=== PATIENT | female | born 1975 | race African-American/Black ===

== ENCOUNTER 2017-09-22 05:53 | Emergency (ER) | payer OTHER ==
[2017-09-22 06:03] VITALS: BP 160/118
--- NOTE | 2017-09-22 06:24 | ER Document Report ---
ED ENT - General Chief Complaint: Sore Throat Stated Complaint: SORE THROAT Time Seen by Provider: 09/22/17 06:23 Notes: The patient is a 42-year-old female, past medical history hypertension (not on any medications), presents with 5 days of a sore throat. She saw her primary care physician was given amoxicillin for suspected strep pharyngitis, but she is still feeling pain and difficulty swallowing. Patient is now complaining of right-sided neck pain. Denies fevers, cough, chest pain, nausea, vomiting, neck stiffness or rash. TRAVEL OUTSIDE OF THE [place] IN LAST 30 DAYS: No - Related Data Allergies/Adverse Reactions: No Known Allergies Allergy (Verified 09/22/17 06:03) Past Medical History - General Information source: Patient - Social History Smoking Status: Unknown if Ever Smoked Family History: Reviewed & Not Pertinent Review of Systems - Review of Systems Notes: REVIEW OF SYSTEMS: CONSTITUTIONAL: -fevers, -chills EENT: -eye pain, -difficulty swallowing, -nasal congestion, +sore throat CARDIOVASCULAR: -chest pain, -syncope. RESPIRATORY: -cough, -SOB GASTROINTESTINAL: -abdominal pain, -nausea, -vomiting, -diarrhea GENITOURINARY: -dysuria, -hematuria MUSCULOSKELETAL: -back pain, +right-sided neck pain SKIN: -rash or skin lesions. HEMATOLOGIC: -easy bruising or bleeding. LYMPHATIC: +swollen, enlarged glands. NEUROLOGICAL: -altered mental status or loss of consciousness, -headache, - neurologic symptoms PSYCHIATRIC: -anxiety, -depression. ALL OTHER SYSTEMS REVIEWED AND NEGATIVE. Physical Exam - Vital signs Vitals: Temp Pulse Resp BP Pulse Ox 98.1 F 82 17 160/118 H 100 09/22/17 06:01 09/22/17 06:01 09/22/17 06:01 09/22/17 06:01 09/22/17 06:01 - Notes Notes: PHYSICAL EXAMINATION: GENERAL: Well-appearing, well-nourished and in no acute distress. HEAD: Atraumatic, normocephalic. EYES: Pupils equal round and reactive to light, extraocular movements intact, sclera anicteric, conjunctiva are normal. ENT: erythematous and mildly swollen posterior pharynx without exudates, nares patent Moist mucous membranes. NECK: Normal range of motion, supple with right anterior cervical lymphadeopathy LUNGS: Breath sounds clear to auscultation bilaterally and equal. No wheezes rales or rhonchi. HEART: Regular rate and rhythm without murmurs ABDOMEN: Soft, nontender, normoactive bowel sounds. No guarding, no rebound. No masses appreciated. EXTREMITIES: Normal range of motion, no pitting or edema. No cyanosis. NEUROLOGICAL: Cranial nerves grossly intact. Normal speech, normal gait. Normal sensory and motor exams. PSYCH: Normal mood, normal affect. SKIN: Warm, Dry, normal turgor, no rashes or lesions noted. Course - Re-evaluation Re-evalutation: Patient already on amoxicillin for presumed strep pharyngitis by her primary care physician. Will add Decadron. She does not appear in any acute distress. Symptoms are atypical for epiglottitis, FLEXOGRAPHIC PRESS OPERATOR, RPA or meningitis at this time. Also instructed her that her blood pressure is high and to follow-up with her primary care physician to have this rechecked when she is not in pain to see if she needs to be started on any antihypertensive medications. EKG obtained because she felt a right upper chest pain, but EKG does not show any acute changes. Instructed her that this may be related to her lymphadenopathy and follow-up with her primary care physician for further evaluation. Given strict return precautions and she understands. - Vital Signs Vital signs: Temp Pulse Resp BP Pulse Ox 98.1 F 82 17 160/118 H 100 09/22/17 06:01 09/22/17 06:01 09/22/17 06:01 09/22/17 06:01 09/22/17 06:01 - EKG Interpretation by Dc EKG shows normal: Sinus rhythm, [place], Intervals, QRS Complexes, ST-T Waves Rate: Normal Discharge - Discharge Clinical Impression: Pharyngitis Qualifiers: Pharyngitis/tonsillitis etiology: unspecified etiology Qualified Code(s): J02.9 - Acute pharyngitis, unspecified Condition: Stable Disposition: HOME, SELF-CARE Additional Instructions: SORE THROAT: Sore throats may be caused by viruses, bacteria, or fungi. Most are due to a virus, and must get better on their own. Bacterial sore throats, particularly those due to "strep," need treatment with antibiotics. If an antibiotic is prescribed, be sure to take the medication for a full 10 days. Failure to take the antibiotic can result in complications such as rheumatic fever. Sometimes, an injection of antibiotics is given instead of pills or liquid. This single "shot" is equal in effectiveness to the oral medication. To relieve symptoms, take acetaminophen for pain. Sip clear liquids frequently, or eat popsicles or ice chips. Anesthetic sprays or lozenges may help. Make sure the air in the room is not too dry. Avoid using decongestants or antihistamines. Call the doctor if there is no improvement in two days, or if you have difficulty breathing, increasing throat pain, high fever, rash, or frequent vomiting. STEROID MEDICATION: You have been given a medicine of the cortisone/steroid class. This medication is used to control inflammation or allergy. It is usually only given for a short period of time, until the acute process subsides. There are usually no side effects from short-term use of cortisone-like medications. Some persons feel an increased sense of well-being and are not sleepy at bedtime. Long-term use of cortisone medications is best avoided, unless required for a severe condition. If your condition does not remit, or relapses after the course of corticosteroid medication, you should consult your physician. FOLLOW-UP CARE: If you have been referred to a physician for follow-up care, call the physician s office for an appointment as you were instructed or within the next two days. If you experience worsening or a significant change in your symptoms, notify the physician immediately or return to the Emergency Department at any time for re-evaluation. Forms: Elevated Blood Pressure
[2017-09-22] MEDS ORDERED: DEXAMETHASONE 4 MG TABLET PO ONE (06:39)
--- NOTE | 2017-09-22 07:50 | EKG REPORT ---
SEVERITY:- NORMAL ECG - SINUS RHYTHM : Confirmed by: Zain Palma MD 22-Sep-2017 07:48:54
== END 2017-09-22 07:16 | disposition home or self-care (01) ==
LOC: ER 05:53
DX: J02.9 Acute pharyngitis, unspecified (principal); R59.0 Localized enlarged lymph nodes; I10 Essential (primary) hypertension; M54.2 Cervicalgia; R07.9 Chest pain, unspecified
CPT/HCPCS: 93005; 93010; 99283

== ENCOUNTER 2018-07-28 06:26 | Emergency (ER) | payer OTHER ==
[2018-07-28 07:26] LABS: APPEARANCE,URINE CLEAR; BILIRUBIN,URINE NEGATIVE (NEGATIVE); COLOR,URINE YELLOW; GLUCOSE, URINE NEGATIVE (NEGATIVE); KETONES,URINE NEGATIVE (NEGATIVE); LEUKOCYTE ESTERASE,URINE NEGATIVE (NEGATIVE); NITRITE,URINE NEGATIVE (NEGATIVE); PROTEIN,URINE NEGATIVE (NEGATIVE); URINE SPECIFIC GRAVITY 1.014; UROBILINOGEN,URINE NEGATIVE mg/dL (<2.0)
[2018-07-28] MEDS ORDERED: NORMAL SALINE 1000 ML 1,000 ML IV ONE (07:36)
[2018-07-28 08:11] LABS: ABSOLUTE BASOPHILS # (AUTO) 0.1 10^3/uL (0.0-0.2); ABSOLUTE EOSINOPHILS # (AUTO) 0.1 10^3/uL (0.0-0.6); ABSOLUTE LYMPHOCYTES (AUTO) 1.9 10^3/uL (0.5-4.7); ABSOLUTE MONOCYTES (AUTO) 0.4 10^3/uL (0.1-1.4); ABSOLUTE NEUT (AUTO) 4.9 10^3/uL (1.7-8.2); BASOPHILS % (AUTO) 0.7 % (0-2); EOSINOPHILS % (AUTO) 1.4 % (0-6); HEMATOCRIT 35.5 % (36.0-47.0); HEMOGLOBIN 11.9 g/dL (12.0-15.5); LYMPHOCYTES % (AUTO) 26.1 % (13-45); MEAN CORPUSCULAR HEMOGLOBIN 30.1 pg (27.0-33.4); MEAN CORPUSCULAR HGB CONC 33.4 g/dL (32.0-36.0); MEAN CORPUSCULAR VOLUME 90 fl (80-97); MONOCYTES % (AUTO) 5.5 % (3-13); PLATELET COUNT 264 10^3/uL (150-450); RED BLOOD COUNT 3.94 10^6/uL (3.72-5.28); RED CELL DISTRIBUTION WIDTH 14.1 % (11.5-14.0); SEGMENTED NEUTROPHILS % (AUTO) 66.3 % (42-78); TOTAL CELLS COUNTED % (AUTO) 100 %; WHITE BLOOD COUNT 7.4 10^3/uL (4.0-10.5)
--- NOTE | 2018-07-28 08:24 | ER Document Report ---
ED GI/ - General Chief Complaint: Flank Pain Stated Complaint: FLANK PAIN Time Seen by Provider: 07/28/18 07:16 Notes: Patient is a 43-year-old female presenting to the emergency department for constant sharp right lower quadrant abdominal pain for the last 3 days. States at time taking a deep breath or moving makes the pain worse. Patient's denying any nausea, vomiting, diarrhea, fever, dysuria, vaginal discharge, URI symptoms. Patient states the pain is in her right lower side and at times radiates around to her right flank. Patient denies that the pain is colicky in any nature. Denies any history of kidney stones. Patient denies any recent lifting or moving, or exercising recently. Past medical history: DVT Medications: None Allergies: Heparin, Benadryl Surgical history: Inguinal hernia repair bilaterally, breast reduction, gastric bypass 2008, partial hysterectomy Patient denies cigarette smoking, denies illicit drug use, denies EtOH use. TRAVEL OUTSIDE OF THE [place] IN LAST 30 DAYS: No - Related Data Allergies/Adverse Reactions: No Known Allergies Allergy (Verified 09/22/17 06:03) Past Medical History - General Information source: Patient - Social History Smoking Status: Never Smoker Lives with: Family Family History: Reviewed & Not Pertinent Patient has suicidal ideation: No Patient has homicidal ideation: No Renal/ Medical History: Denies: Hx Peritoneal Dialysis Past Surgical History: Reports: Hx Abdominal Surgery - gastric bypass 2008, Hx Breast Surgery - reduction, Hx Orthopedic Surgery - bilat ankles Review of Systems - Review of Systems Constitutional: See HPI EENT: See HPI Cardiovascular: See HPI Respiratory: See HPI Gastrointestinal: See HPI Genitourinary: See HPI Female Genitourinary: See HPI Musculoskeletal: See HPI Skin: No symptoms reported Hematologic/Lymphatic: No symptoms reported Neurological/Psychological: No symptoms reported Physical Exam - Vital signs Vitals: Temp Pulse Resp BP Pulse Ox 98.5 F 67 18 182/107 H 100 07/28/18 06:27 07/28/18 06:27 07/28/18 06:27 07/28/18 06:27 07/28/18 06:27 - Notes Notes: GENERAL: Alert, interacts well. No acute distress. HEAD: Normocephalic, atraumatic. EYES: Pupils equal, round, and reactive to light. Extraocular movements intact. ENT: Oral mucosa moist, tongue midline. NECK: Full range of motion. Supple. Trachea midline. LUNGS: Clear to auscultation bilaterally, no wheezes, rales, or rhonchi. No respiratory distress. HEART: Regular rate and rhythm. No murmur ABDOMEN: Soft, Non-distended. Bowel sounds present in all 4 quadrants. No Ontiveros sign, positive McBurney's point tenderness. No left lower quadrant pain no left upper quadrant pain. EXTREMITIES: Moves all 4 extremities spontaneously. No edema, normal radial and dorsalis pedis pulses bilaterally. No cyanosis. BACK: no cervical, thoracic, lumbar midline tenderness. No saddle anesthesia, normal distal neurovascular exam. No CVA tenderness bilaterally. NEUROLOGICAL: Alert and oriented x3. Normal speech. cranial nerves II through XII grossly intact. PSYCH: Normal affect, normal mood. SKIN: Warm, dry, normal turgor. No rashes or lesions noted. Course - Re-evaluation Re-evalutation: 07/28/18 08:37 Discussed right lower quadrant pain with patient at bedside. Discussed imaging for appendicitis is best ruled out with a CT. Patient states she wishes for a CT at this time. Blood work has been ordered. Patient is currently refusing any pain management. States she does not like how it makes her feel. Discussed with her nonnarcotic pain management and she continues to deny wanting any pain management. 07/28/18 10:34 CT shows no signs of appendicitis, kidney stones. Discussed lab results with patient at bedside which showed no signs of leukocytosis, no urinary tract infection or dehydration. Discussed need for follow-up with gastroenterology if pain continues. Discussed potential muscle pull or strain if she continues with pain into her right back. Patient states she will take [id number] Motrin. Patient declines any pain management for home or muscle relaxers. Nursing notes reviewed, vital signs reviewed. Patient continues to be hypertensive through visit to the emergency room. Patient continues to deny wanting any pain management. Discussed need to follow -up with primary care provider for her hypertension. - Vital Signs Vital signs: Temp Pulse Resp BP Pulse Ox 98.5 F 67 18 182/107 H 100 07/28/18 06:27 07/28/18 06:27 07/28/18 06:27 07/28/18 06:27 07/28/18 06:27 - Laboratory Result Diagrams: 07/28/18 08:00 07/28/18 09:26 Laboratory results interpreted by me: 07/28/18 07/28/18 08:00 09:26 Hgb 11.9 L Hct 35.5 L RDW 14.1 H Chloride 110 H Carbon Dioxide 20 L Calcium 8.2 L Albumin 3.2 L Discharge - Discharge Clinical Impression: Abdominal pain Qualifiers: Abdominal location: right lower quadrant Qualified Code(s): R10.31 - Right lower quadrant pain Condition: Stable Disposition: HOME, SELF-CARE Instructions: Abdominal Pain ([facility]) Additional Instructions: As we discussed you have been seen and treated in the emergency department for abdominal pain. Your CT reveals no signs of appendicitis or kidney stones. Your lab work reveals no signs of infection, anemia, urinary tract infection. Please follow-up with your primary care provider. Gastroenterology phone numbers will be given to you in this paperwork. Please return to the emergency room for any other concerning symptoms. Also as we discussed you should follow-up with your primary care provider for your hypertension at today's visit. Forms: Elevated Blood Pressure Referrals: SARAVANAN BENITES MD [ACTIVE STAFF] - Follow up as needed
--- NOTE | 2018-07-28 08:30 | RADIOLOGY REPORT (SQ) ---
EXAM DESCRIPTION: CT ABD/PELVIS WITH IV ONLY COMPLETED DATE/TIME: 07/28/2018 8:16 am REASON FOR STUDY: RLQ pain COMPARISON: None. TECHNIQUE: CT scan of the abdomen and pelvis performed using helical scanning technique with dynamic intravenous contrast injection. No oral contrast. Images reviewed with lung, soft tissue, and bone windows. Reconstructed coronal and sagittal MPR images reviewed. Delayed images for evaluation of the urinary system also acquired. All images stored on PACS. All CT scanners at this facility use dose modulation, iterative reconstruction, and/or weight based d osing when appropriate to reduce radiation dose to as low as reasonably achievable (ALARA). [facility]: Dose Right [facility]: CareDose [facility]: Dose Right [facility]: Teradose 4D [facility]: CloudMedx CONTRAST TYPE AND DOSE: contrast/concentration: Isovue 350.00 mg/ml; Total Contrast Delivered: 93.0 ml; Total Saline Delivered: 70.0 ml RENAL FUNCTION: None required. The patient is less than 50 years old. RADIATION DOSE: CT Rad equipment meets quality standard of care and radiation dose reduction techniq ues were employed. CTDIvol: 10.6 - 13.9 mGy. DLP: 1401 mGy-cm.. LIMITATIONS: None. FINDINGS: LOWER CHEST: No significant findings. No nodules or infiltrates. LIVER: Normal size. No masses. No dilated ducts. SPLEEN: Normal size. No focal lesions. PANCREAS: No masses. No significant calcifications. No adjacent inflammation or peripancreatic fluid collections. Pancreatic duct not dilated. GALLBLADDER: No identified stones by CT criteria. No inflammatory changes to suggest cholecystitis. ADRENAL GLANDS: No significant masses or asymmetry. RIGHT KIDNEY AND URETER: No solid masses. No significant calcifications. No hydronephrosis or hyd roureter. LEFT KIDNEY AND URETER: No solid masses. No significant calcifications. No hydronephrosis or hydr oureter. AORTA AND VESSELS: No aneurysm. No dissection. Renal arteries, SMA, celiac without stenosis. IVC fallon ter in place RETROPERITONEUM: No retroperitoneal adenopathy, hemorrhage or masses. BOWEL AND PERITONEAL CAVITY: Post gastric bypass with Sana loop. Small retrocardiac hiatal hernia. No CT evidence of bowel obstruction or free intraperitoneal air or fluid. Moderate stool in the colo n. APPENDIX: Normal. PELVIS: No mass. No free fluid. Normal bladder. Post hysterectomy. Right ovary not visualized. Le ft ovary 3 x 2 cm size. ABDOMINAL WALL: No masses. No hernias. BONES: No significant or acute findings. OTHER: No other significant finding. IMPRESSION: NO SIGNIFICANT OR ACUTE FINDING IN THE ABDOMEN OR PELVIS ON CT SCAN WITH IV CONTRAST. TECHNICAL DOCUMENTATION: JOB ID: [id number] Quality ID # 436: Final reports with documentation of one or more dose reduction techniques (e.g., Au tomated exposure control, adjustment of the mA and/or kV according to patient size, use of iterative reconstruction technique) 2010 [employer]- All Rights Reserved Reading location - IP/workstation name: [email or web address]
[2018-07-28] MEDS ORDERED: KETOROLAC TROMETHAMINE INJ/PF 30 MG/1 ML SDV IV ONE (08:31)
[2018-07-28 10:21] LABS: ALANINE AMINOTRANSFERASE 15 U/L (9-52); ALBUMIN 3.2 g/dL (3.5-5.0); ALKALINE PHOSPHATASE 70 U/L (38-126); ANION GAP 11 (5-19); ASPARTATE AMINO TRANSFERASE 19 U/L (14-36); BILIRUBIN,DIRECT 0.1 mg/dL (0.0-0.4); BILIRUBIN,TOTAL 0.6 mg/dL (0.2-1.3); BLOOD UREA NITROGEN 12 mg/dL (7-20); CALCIUM 8.2 mg/dL (8.4-10.2); CARBON DIOXIDE 20 mmol/L (22-30); CHLORIDE 110 mmol/L (98-107); GLUCOSE 78 mg/dL (75-110); POTASSIUM 4.1 mmol/L (3.6-5.0); TOTAL PROTEIN 6.3 g/dL (6.3-8.2)
[2018-07-28 10:51] VITALS: BP 172/105
== END 2018-07-28 10:55 | disposition home or self-care (01) ==
LOC: ER 06:26
DX: R10.31 Right lower quadrant pain (principal); Z86.718 Personal history of other venous thrombosis and embolism; Z98.84 Bariatric surgery status; Z90.710 Acquired absence of both cervix and uterus
CPT/HCPCS: 99284; 96361; 96374; 36415; 85025; 81025; 80053; 81001; 74177; J1885; J7030

== ENCOUNTER 2019-04-23 19:49 | Emergency (ER) | payer OTHER ==
[2019-04-23] MEDS ORDERED: ONDANSETRON 4 MG TAB.RAPDIS PO ONE (20:22)
[2019-04-23] MEDS ORDERED: HYDROCODONE/ACETAMINOPHEN 5-325 MG TABLET PO ONE (20:22)
[2019-04-23] MEDS ORDERED: NORMAL SALINE 1000 ML 1,000 ML IV ONE (20:22)
[2019-04-23] MEDS ORDERED: KETOROLAC TROMETHAMINE INJ/PF 30 MG/1 ML SDV IV ONE (20:23)
--- NOTE | 2019-04-23 20:39 | ER Document Report ---
ED Medical Screen (RME) - General Chief Complaint: Abdominal Pain Stated Complaint: ABDOMINAL AND SIDE PAIN Time Seen by Provider: 04/23/19 20:29 Notes: Patient is a 44-year-old female who presents to the emergency department with a chief complaint of left lower abdominal pain. Her symptoms started around 1330 this afternoon. The pain wraps around her lower abdomen and to her left back. She states the pain is mainly in the left. She denies any dysuria or vaginal discharge. Patient states that she has had a partial hysterectomy, hernia as on both sides, and gastric bypass in the past. Patient states that she feels her abdomen is a lot more swollen than normal. Exam: Very tender mid to the left abdomen. TRAVEL OUTSIDE OF THE [place] IN LAST 30 DAYS: No - Related Data Allergies/Adverse Reactions: No Known Allergies Allergy (Verified 09/22/17 06:03) Past Medical History - Social History Chew tobacco use (# tins/day): No Frequency of alcohol use: None Drug Abuse: None Renal/ Medical History: Denies: Hx Peritoneal Dialysis Past Surgical History: Reports: Hx Abdominal Surgery - gastric bypass 2008, Hx Breast Surgery - reduction, Hx Orthopedic Surgery - bilat ankles Physical Exam - Vital signs Vitals: Temp Pulse Resp BP Pulse Ox 99.0 F 80 20 186/104 H 100 04/23/19 19:56 04/23/19 19:56 04/23/19 19:56 04/23/19 19:56 04/23/19 19:56 Course - Vital Signs Vital signs: Temp Pulse Resp BP Pulse Ox 99.0 F 80 20 186/104 H 100 04/23/19 19:56 04/23/19 19:56 04/23/19 19:56 04/23/19 19:56 04/23/19 19:56
[2019-04-23 21:06] LABS: ABSOLUTE MONOCYTES (AUTO) 0.2 10^3/uL (0.1-1.4); HEMOGLOBIN 12.9 g/dL (12.0-15.5); MONOCYTES % (AUTO) 2.1 % (3-13); TOTAL CELLS COUNTED % (AUTO) 100 %
[2019-04-23 21:10] LABS: ABSOLUTE NEUT (AUTO) 8.4 10^3/uL (1.7-8.2); BASOPHILS % (AUTO) 0.3 % (0-2); EOSINOPHILS % (AUTO) 0.2 % (0-6); HEMATOCRIT 38.1 % (36.0-47.0); LYMPHOCYTES % (AUTO) 10.1 % (13-45); MEAN CORPUSCULAR HEMOGLOBIN 31.6 pg (27.0-33.4); MEAN CORPUSCULAR HGB CONC 33.8 g/dL (32.0-36.0); MEAN CORPUSCULAR VOLUME 94 fl (80-97); PLATELET COUNT 279 10^3/uL (150-450); RED BLOOD COUNT 4.07 10^6/uL (3.72-5.28); RED CELL DISTRIBUTION WIDTH 13.4 % (11.5-14.0); SEGMENTED NEUTROPHILS % (AUTO) 87.3 % (42-78); WHITE BLOOD COUNT 9.6 10^3/uL (4.0-10.5)
[2019-04-23 21:27] LABS: ALBUMIN 3.8 g/dL (3.5-5.0); ALKALINE PHOSPHATASE 79 U/L (38-126); ANION GAP 8 (5-19); ASPARTATE AMINO TRANSFERASE 24 U/L (14-36); BILIRUBIN,DIRECT 0.1 mg/dL (0.0-0.4); BILIRUBIN,TOTAL 0.5 mg/dL (0.2-1.3); BLOOD UREA NITROGEN 12 mg/dL (7-20); CALCIUM 9.1 mg/dL (8.4-10.2); CARBON DIOXIDE 25 mmol/L (22-30); CHLORIDE 103 mmol/L (98-107); GLUCOSE 113 mg/dL (75-110); POTASSIUM 3.9 mmol/L (3.6-5.0); TOTAL PROTEIN 6.7 g/dL (6.3-8.2)
--- NOTE | 2019-04-23 22:33 | RADIOLOGY REPORT (SQ) ---
EXAM DESCRIPTION: CT ABDOMEN PELVIS WITH IV CONTRAST COMPLETED DATE/TME: 04/23/2019 20:37 CLINICAL HISTORY: 44 years, Female, abdominal pain COMPARISON: None. TECHNIQUE: 392 Images stored on PACS. All CT scanners at this facility use dose modulation, iterative reconstruction, and/or weight based dosing when appropriate to reduce radiation dose to as low as reasonably achievable (ALARA). [facility]: Dose Right [facility]: CareDose [facility]: Dose Right [facility]: Teradose 4D [facility]: PowerPot LIMITATIONS: None. FINDINGS: Visualized lung bases are unremarkable. Osseous structures are grossly intact. Fatty infiltrative change to the liver. Post surgical changes in the upper abdomen. Spleen, adrenal glands, pancreas, kidneys are unremarkable. Status post cholecystectomy. Inferior vena cava filter in place. Normal appendix. Small amount of free fluid in the pelvis, likely physiologic. Note is made of a lobulated cystic mass in the left adnexa versus 2 immediately adjacent cysts. Taken together the mass measures 7.5 x 4.7 cm with an internal septation and areas of increased echogenicity. IMPRESSION: Lobulated left adnexal cysts demonstrating a component of complexity. Recommend follow-up with dedicated pelvic ultrasound. This measures 7.5 cm in greatest diameter. Small amount of free fluid which may be physiologic. TECHNICAL DOCUMENTATION: Quality ID # 436: Final reports with documentation of one or more dose reduction techniques (e.g., Automated exposure control, adjustment of the mA and/or kV according to patient size, use of iterative reconstruction technique) copyright 2011 [employer]- All Rights Reserved
[2019-04-23 22:58] LABS: APPEARANCE,URINE SLIGHTLY-CLOUDY; BILIRUBIN,URINE NEGATIVE (NEGATIVE); COLOR,URINE YELLOW; GLUCOSE, URINE NEGATIVE (NEGATIVE); KETONES,URINE TRACE mg/dL (NEGATIVE); LEUKOCYTE ESTERASE,URINE NEGATIVE (NEGATIVE); NITRITE,URINE POSITIVE (NEGATIVE); PROTEIN,URINE 30 mg/dL (NEGATIVE); URINE SPECIFIC GRAVITY 1.043; UROBILINOGEN,URINE NEGATIVE mg/dL (<2.0)
--- NOTE | 2019-04-24 00:33 | ER Document Report ---
ED General - General Chief Complaint: Abdominal Pain Stated Complaint: ABDOMINAL AND SIDE PAIN Time Seen by Provider: 04/23/19 20:29 TRAVEL OUTSIDE OF THE [place] IN LAST 30 DAYS: No - HPI Notes: 44-year-old female presents with left-sided pelvic pain. Patient has a history of partial hysterectomy. Indicates around 1 or 2 PM today sudden onset left lower pelvic pain. Sharp severe cramping and stabbing. No vaginal bleeding or discharge. Nausea but no vomiting. No fever, chills or sweats. No unplanned weight loss or other constitutional symptoms. No history of ovarian or uterine malignancy. No other modifying factors, no other associated symptoms, no other provocative or palliative factors. - Related Data Allergies/Adverse Reactions: No Known Allergies Allergy (Verified 09/22/17 06:03) Past Medical History - Social History Smoking Status: Never Smoker Chew tobacco use (# tins/day): No Frequency of alcohol use: None Drug Abuse: None Family History: Reviewed & Not Pertinent Patient has suicidal ideation: No Patient has homicidal ideation: No - Medical History Medical History: Negative Renal/ Medical History: Denies: Hx Peritoneal Dialysis Past Surgical History: Reports: Hx Abdominal Surgery - gastric bypass 2008, Hx Breast Surgery - reduction, Hx Orthopedic Surgery - bilat ankles Review of Systems - Review of Systems Notes: Review of systems as in the history of present illness, otherwise negative x 10 systems. Physical Exam - Vital signs Vitals: Temp Pulse Resp BP Pulse Ox 99.0 F 80 20 186/104 H 100 04/23/19 19:56 04/23/19 19:56 04/23/19 19:56 04/23/19 19:56 04/23/19 19:56 - Notes Notes: General: Well developed . HEENT: Normocephalic, atraumatic. Pupils equal round reactive to light. No JVD. Chest: No trauma. Respiratory: Good air exchange, normal excursion. Cardiac: Regular rhythm. No murmurs or gallops. Abdomen: Soft nondistended with no guarding rigidity or rebound. Moderate left lower pelvic tenderness,. Back: No asymmetry or gross abnormality. Motor: Grossly normal power and tone. Neurologic: Alert, nonfocal. Cranial nerves II-12 are intact. Sensation intact. Vascular: Well perfused. Normal peripheral pulses. Skin: No petechiae or purpura. Course - Vital Signs Vital signs: Temp Pulse Resp BP Pulse Ox 99.0 F 80 20 186/104 H 100 04/23/19 19:56 04/23/19 19:56 04/23/19 19:56 04/23/19 19:56 04/23/19 19:56 - Laboratory Result Diagrams: 04/23/19 20:50 04/23/19 20:50 Laboratory results interpreted by me: 04/23/19 04/23/19 04/23/19 20:50 20:50 22:30 Seg Neutrophils % 87.3 H Lymphocytes % 10.1 L Monocytes % 2.1 L Absolute Neutrophils 8.4 H Sodium 136.0 L Glucose 113 H Urine Protein 30 H Urine Ketones TRACE H Urine Nitrite POSITIVE H - Transfer of Care Notes: 04/24/19 00:32 Patient was evaluated by the [facility] provider prior to my evaluation. Studies / interventions have been ordered by this provider and may still be pending. 44-year-old female the after mentioned symptoms. At the time of evaluation she is already undergone CT imaging which shows a complex lobulated left cystic mass in the near the ovary. Labs are otherwise reviewed and CBC and chemistries are unremarkable. Plan to perform pelvic examination, will perform transvaginal ultrasound as she is at increased risk for torsion, consider malignancy or other etiology as well. We have already had a discussion with regard to the critical importance of close SKILL TRAINING PROGRAM COORDINATOR follow-up on discharge 04/24/19 02:30 Pelvic examination is performed. Moderate amount of homogenous white discharge. Close cervical loss, no obvious erosions, erythema or mass. Bimanual exam shows mild left adnexal tenderness, no palpable mass. Serial examinations thus far showed a benign abdomen on palpation. 04/24/19 03:07 Ultrasound is obtained and shows a large complex cystic mass. At this point, patient will require close SKILL TRAINING PROGRAM COORDINATOR follow-up to evaluate for etiology of the malignancy and need for surgery. She was referred to her manager endoscopy, given a prescription for hydrocodone, return if worsening or fever. Discharge - Discharge Clinical Impression: Ovarian mass, left Condition: Stable Disposition: HOME, SELF-CARE Instructions: Abdominal Pain ([facility]), Ovarian Cyst ([facility]) Additional Instructions: Your ultrasound showed a complex left ovarian cystic mass that will need to have close and rapid follow-up with your manager endoscopy. Prescriptions: Hydrocodone/Acetaminophen [Vicodin 5-300 mg Tablet] 1 each PO Q6 3 Days #12 tablet
[2019-04-24] MEDS ORDERED: MORPHINE SULFATE 10 MG/ML INJ IV ONE (01:03)
--- NOTE | 2019-04-24 03:01 | RADIOLOGY REPORT (SQ) ---
EXAM DESCRIPTION: US PELVIS TRANSVAGINAL COMPLETED DATE/TME: 04/24/2019 00:29 CLINICAL HISTORY: 44 years, Female, Left ovarian mass on CT, eval for torsion COMPARISON: CT from today's date TECHNIQUE: Transabdominal and transvaginal sonographic images of the pelvis LIMITATIONS: None. FINDINGS: Patient is status post hysterectomy. The right ovary is not definitively visualized. The left ovary measures 6.4 x 5.6 x 5.5 cm. Doppler and spectral analysis with color flow does demonstrate flow to the left ovary. There is a complex cystic mass measuring 5.2 x 5.0 x 4.2 cm, with a large peripheral area of soft tissue nodularity and complexity associated with the cyst. This nodular component measures 3.3 x 3.2 cm. No free fluid. IMPRESSION: No sonographic evidence for torsion. However there is a large complex cystic mass with peripheral nodularity as described above. Consider follow-up with dedicated MRI and/or surgical consultation. Recommendations for f/u of ovarian complex cysts (1): Endometrioma: <= 7 cm: US f/u 6-12 wks. If not surgically resected, US f/u annually. >7 cm: Consider MR w/IVC or surgical evaluation. If not surgically resected, US f/u annually. Dermoid: <= 5 cm: MR w/IV contrast. If not surgically resected, US f/u annually. >5 cm: Surgical evaluation. If not surgically resected, MR w/IVC; then US f/u annually Indeterminate cyst - multiple thin <=3 mm septations: Any size in any age: Consider surgical evaluation. Indeterminate cyst - non-hyperechoic nodule w/o blood flow: Any size in any age: Consider MR w/IVC or surgical evaluation. Indeterminate cyst - other, not classic for but suggestive of hemorrhagic cyst, endometrioma or dermoid: Pre-menopause: <= 7 cm: US f/u 6-12 weeks. If unchanged, continue f/u with US or consider MR w/IVC. If these do not confirm endometrioma or dermoid, consider surgical evaluation. >7 cm: Consider MR w/IVC or surgical evaluation. Post-menopause (>=1 year from last menstrual period): Any size: Consider surgical evaluation. Cyst worrisome for malignancy (thick, irregular >=3 mm septations or nodule with blood flow): Any size in any age: Consider surgical evaluation. (1) Recommendations based upon the 2010 [employer]U Consensus Conference Statement on the Management of Asymptomatic Ovarian and Other Adnexal Cysts Imaged at US: Radiology. 2009;256(3):943-54. copyright 2010 [employer]- All Rights Reserved
[2019-04-24 03:44] VITALS: BP 142/78
== END 2019-04-24 03:45 | disposition home or self-care (01) ==
LOC: ER 19:49
DX: N83.202 Unspecified ovarian cyst, left side (principal); R10.9 Unspecified abdominal pain; R10.2 Pelvic and perineal pain
CPT/HCPCS: 36415; 85025; 80053; 81001; 76830; 93976; 74177; S0119; J1885; J2270; J7030; 96361; 96374; 96375; 99284